=== PATIENT | female | born 1980 | race Caucasian/White ===

== ENCOUNTER 2024-09-16 09:41 | Emergency (ER) | payer BC ==
[~2024-09-16] VITALS: Ht 162.6 cm; Wt 88.6 kg
[2024-09-16] MEDS ORDERED: IBUP-1985 PO (10:40)
[2024-09-16] MEDS ORDERED: CLIN-214 PO (10:40)
[2024-09-16 10:53] VITALS: BP 138/93; PULSE 97; RESP 16; TEMP 98.9; O2SAT 98
== END 2024-09-16 10:56 | disposition home or self-care (01) ==
LOC: ER 09:42
DX: K04.7 Periapical abscess without sinus (principal)
CPT/HCPCS: 99283